=== PATIENT | male | born 1960 | race Hispanic/Latino ===

== ENCOUNTER 2022-09-28 14:55 | Outpatient (CLI) | payer OTHER | END 2022-09-28 14:56 | disposition home or self-care (01) | LOC: BICRAD 14:55 | PROVIDERS: ATTEND Student in an Organized Health Care Education/Training Program | DX: M53.82 Other specified dorsopathies, cervical region (principal); M47.812 Spondylosis without myelopathy or radiculopathy, cervical region | CPT/HCPCS: 72040 ==